=== PATIENT | female | born 1995 | race Caucasian/White ===

== ENCOUNTER 2017-05-05 02:06 | Outpatient (CLI) | payer MEDICAID ==
[2017-05-05] MEDS ORDERED: LACTATED RINGERS 500 ML IV ONE (02:18)
[2017-05-05 02:24] VITALS: BP 118/65
[2017-05-05] MEDS ORDERED: LACTATED RINGERS 1,000 ML IV ONE (02:56)
[2017-05-05] MEDS ORDERED: BICITRA PO ONE (02:57)
[2017-05-05] MEDS ORDERED: ZOFRAN IV ONE (02:57)
== END 2017-05-05 03:50 | disposition home or self-care (01) ==
LOC: TRG 02:06
PROVIDERS: ATTEND Obstetrics & Gynecology
DX: O21.2 Late vomiting of pregnancy (principal); O26.893 Other specified pregnancy related conditions, third trimester; R10.9 Unspecified abdominal pain; Z3A.35 35 weeks gestation of pregnancy
CPT/HCPCS: 59025; 96360; 96374; 96376; J2405; J7120

== ENCOUNTER 2017-05-05 15:55 | Outpatient (CLI) | payer MEDICAID ==
[2017-05-05] MEDS ORDERED: LACTATED RINGERS 500 ML IV ONE (17:16)
[2017-05-05 18:11] VITALS: BP 119/68
[2017-05-05 18:38] LABS: Urine Drugs of Abuse Note Disclamer
[2017-05-05 18:51] LABS: Bacteria,Urine 1+ /HPF (Negative); Bilirubin,Urine NEG (Negative); Blood,Urine NEG (Negative); Ketones,Urine 80 mg/dL (Negative); Leukocyte Esterase,Urine NEG (Negative); Mucus,Urine 3+ /HPF; Nitrite,Urine NEG (Negative); Urobilinogen,Urine < 2.0 mg/dL (<2.0)
[2017-05-05] MEDS ORDERED: ZOFRAN PO ONE (19:05)
[2017-05-05] MEDS ORDERED: VISTARIL PO PRN (19:29)
== END 2017-05-05 19:50 | disposition home or self-care (01) ==
LOC: EDSTATUS 16:53 → TRG 16:55
PROVIDERS: ATTEND Obstetrics & Gynecology
DX: O47.03 False labor before 37 completed weeks of gestation, third trimester (principal); O26.893 Other specified pregnancy related conditions, third trimester; R53.1 Weakness; Z3A.35 35 weeks gestation of pregnancy
CPT/HCPCS: 80307; 81001; Q0162; Q0177